=== PATIENT | female | born 1985 | race American Indian/Alaskan Native ===

== ENCOUNTER 2019-06-19 18:53 | Emergency (ER) | payer SELFPAY ==
[2019-06-19] MEDS ORDERED: ACETAMINOPHEN 325 MG TAB PO ONE (20:59)
--- NOTE | 2019-06-19 21:32 | Emergency Department Report ---
ED Fever HPI - General Chief Complaint: Fever Stated Complaint: FEVER,CHILLS,DIRREHA Time Seen by Provider: 06/19/19 20:34 - History of Present Illness Initial Comments: Patient is a 34-year-old female presents emergency room with complaints of a fever that began 4 days ago. She states that she last had Goody powder at 6:45 PM. She states that she has an occasional dry cough which she relates to her allergies and rhinorrhea. She states that she had diarrhea yesterday which resolved she denies any sore throat, chest pain, shortness of breath. She denies any sick contacts or recent travel. She denies any past medical history. She states she has an allergy to penicillin. She states her last menstrual cycle was 06/14/2019. ED Review of Systems ROS: Stated complaint: FEVER,CHILLS,DIRREHA Other details as noted in HPI Comment: All other systems reviewed and negative ED Past Medical Hx - Past Medical History Previous Medical History?: Yes Hx Headaches / Migraines: Yes - Surgical History Past Surgical History?: Yes Additional Surgical History: TUBAL LIGATION - Social History Smoking Status: Never Smoker Substance Use Type: Alcohol - Medications Home Medications: Home Medications Medication Instructions Recorded Confirmed Last Taken Type Azithromycin [Zithromax TAB] 500 mg PO QDAY #4 tablet 11/10/14 Unknown Rx HYDROcodone/APAP 10-325 [[place] 1 each PO Q6HR PRN #12 tablet 11/10/14 Unknown Rx 10/325] predniSONE [Deltasone] 20 mg PO TID #9 tab 11/10/14 Unknown Rx Acetaminophen/Codeine [Tylenol #3] 1 tab PO Q6H PRN #12 tab 01/06/[address] [Voltaren Dr] 75 mg PO Q12H #30 tablet 01/06/15 Unknown Rx Acetaminophen [Tylenol] 650 mg PO Q8HR PRN #20 capsule 06/19/19 Unknown Rx Fluticasone [Flonase] 1 spray NS QDAY #1 bottle 06/19/19 Unknown Rx Ondansetron [Zofran Odt] 4 mg PO Q8HR PRN #14 tab.rapdis 06/19/19 Unknown Rx ED Physical Exam - General Limitations: No Limitations General appearance: alert, in no apparent distress - Head Head exam: Present: atraumatic, normocephalic - Eye Eye exam: Present: normal appearance - ENT ENT exam: Present: normal orophraynx, mucous membranes moist, other (pale boggy turbinates with clear nasal drainage, no sinus ttp). Absent: TM's normal bilaterally, normal external ear exam - Respiratory Respiratory exam: Present: normal lung sounds bilaterally. Absent: respiratory distress, wheezes, rales, rhonchi, stridor, chest wall tenderness, accessory muscle use, decreased breath sounds, prolonged expiratory - Cardiovascular Cardiovascular Exam: Present: regular rate, normal rhythm, normal heart sounds. Absent: systolic murmur, diastolic murmur, rubs, gallop - Neurological Exam Neurological exam: Present: alert, oriented X3 - Psychiatric Psychiatric exam: Present: normal affect, normal mood - Skin Skin exam: Present: warm, dry, intact ED Course Vital Signs 06/19/19 06/19/19 19:54 22:37 Temperature 99.7 F H 99.3 F Pulse Rate 102 H 89 Respiratory 18 18 Rate Blood Pressure 113/75 109/76 [Right] O2 Sat by Pulse 100 98 Oximetry ED Medical Decision Making - Lab Data Lab Results 06/19/19 Range/Units Unknown Influenza A (Rapid) Negative (Negative) Influenza B (Rapid) Negative (Negative) - Radiology Data Radiology results: report reviewed CHEST 2 VIEWS INDICATION / CLINICAL INFORMATION: MAIN: fever, cough, diarrhea; Pt c/o fever since Tuesday and diarrhea on Tuesday.. COMPARISON: None available. FINDINGS: SUPPORT DEVICES: None. HEART / MEDIASTINUM: No significant abnormality. LUNGS / PLEURA: No significant pulmonary or pleural abnormality. No pneumothorax. ADDITIONAL FINDINGS: No significant additional findings. IMPRESSION: No acute finding. Signer Name: Jameson Hughes MD Signed: 06/19/2019 9:43 PM Workstation Name: [id number] Transcribed By: STEPHANIE Dictated By: Jameson Hughes MD Electronically Authenticated By: Jameson Hughes MD Signed Date/Time: 06/19/192142 DD/ 42 TD/TT: - Medical Decision Making Patient is a 34-year-old female presents emergency room with complaints of a fever that began 4 days ago. She states that she last had Goody powder at 6:45 PM. She states that she has an occasional dry cough which she relates to her allergies and rhinorrhea. She states that she had diarrhea yesterday which resolved she denies any sore throat, chest pain, shortness of breath. She denies any sick contacts or recent travel. She denies any past medical history. She states she has an allergy to penicillin. She states her last menstrual cycle was 06/14/2019. Initial vitals with mild low-grade temp and heart rate which improved upon Tylenol administration to normal. Rapid influenza is negative. Chest x-ray with no acute finding. on exam: pale boggy turbinates with clear nasal drainage, no sinus ttp, breath sounds are clear bilaterally, no wheezing, no rales, no rhonchi. Examination consistent with allergic rhinitis and viral illness. Patient does not have any risk factors for COVID 19. advised pt Please use Flonase [id number]. May also take Claritin or Zyrtec. Increase your fluid intake. May take Tylenol as needed for fever. Please quarantine for the next 2 weeks. Please do not go out until you have been fever free for 48-hours. Please wash your hands frequently. Please wear a mask at home if you are around others. Follow-up with a primary care doctor in the next 3 days for reexamination. Return to the emergency room immediately for any new or worsening symptoms including but not limited to increasing fevers, shortness of breath, difficulty breathing, unable to tolerate by mouth intake, etc. - Differential Diagnosis URI, PNA, influenza, viral syndrome, sinusitis, allergic rhinitis Critical care attestation.: If time is entered above; I have spent that time in minutes in the direct care of this critically ill patient, excluding procedure time. ED Disposition Clinical Impression: Viral illness Allergic rhinitis Qualifiers: Allergic rhinitis trigger: unspecified Allergic rhinitis seasonality: unspecified Qualified Code(s): J30.9 - Allergic rhinitis, unspecified Disposition: DC-01 TO HOME OR SELFCARE Is pt being admited?: No Does the pt Need Aspirin: No Condition: Stable Instructions: Allergic Rhinitis (ED), Viral Syndrome (ED) Additional Instructions: Please use Flonase [id number]. May also take Claritin or Zyrtec. Increase your fluid intake. May take Tylenol as needed for fever. Please quarantine for the next 2 weeks. Please do not go out until you have been fever free for 48-hours. Please wash your hands frequently. Please wear a mask at home if you are around others. Follow-up with a primary care doctor in the next 3 days for reexamination. Return to the emergency room immediately for any new or worsening symptoms including but not limited to increasing fevers, shortness of breath, difficulty breathing, unable to tolerate by mouth intake, etc. Prescriptions: Fluticasone [Flonase] 1 spray NS QDAY #1 bottle Acetaminophen [Tylenol] 650 mg PO Q8HR PRN #20 capsule PRN Reason: fever Ondansetron [Zofran Odt] 4 mg PO Q8HR PRN #14 tab.rapdis PRN Reason: Nausea And Vomiting Referrals: MIRELA ALLEN MD [Staff Physician] - 3-5 Days [facility] [Outside] - 3-5 Days Time of Disposition: 22:03 Print Language: SPANISH
--- NOTE | 2019-06-19 21:48 | XRay Report ---
CHEST 2 VIEWS INDICATION / CLINICAL INFORMATION: MAIN: fever, cough, diarrhea; Pt c/o fever since Tuesday and diarrhea on Tuesday.. COMPARISON: None available. FINDINGS: SUPPORT DEVICES: None. HEART / MEDIASTINUM: No significant abnormality. LUNGS / PLEURA: No significant pulmonary or pleural abnormality. No pneumothorax. ADDITIONAL FINDINGS: No significant additional findings. IMPRESSION: No acute finding. Signer Name: Jameson Hughes MD Signed: 06/19/2019 9:43 PM Workstation Name: [id number]
[2019-06-19 22:38] VITALS: BP 109/76
[2019-06-19] MEDS ORDERED: ACETAMINOPHEN 325 MG TAB ONE (23:22)
== END 2019-06-19 23:25 | disposition home or self-care (01) ==
LOC: ED 18:53
DX: B34.9 Viral infection, unspecified (principal); J30.9 Allergic rhinitis, unspecified; G43.909 Migraine, unspecified, not intractable, without status migrainosus; Z98.51 Tubal ligation status; Z98.890 Other specified postprocedural states; Z79.899 Other long term (current) drug therapy; Z88.0 Allergy status to penicillin; Z91.018 Allergy to other foods
CPT/HCPCS: 71046; 87400; 99283